=== PATIENT | female | born 1970 | race African-American/Black ===

== ENCOUNTER 2018-09-25 14:34 | Emergency (ER) | payer MEDICAID, OTHER ==
[~2018-09-25] VITALS: Ht 162.6 cm; Wt 92.1 kg
[2018-09-25 14:41] VITALS: BP 127/75
[2018-09-25 15:50] LABS: Eosinophils # (auto) 0.1 uL; Eosinophils % (auto) 0.8 % (0.0-7.0); Hemoglobin 8.4 g/dL (12.2-16.2); Lymphocytes # (auto) 2.7 uL; Neutrophils % (auto) 55.9 % (37.0-80.0)
[2018-09-25 15:52] LABS: Basophils # (auto) 0 uL; Basophils % (auto) 0.6 % (0.0-2.0); Hematocrit 27.6 % (36.0-46.0); Lymphocytes % (auto) 36.1 % (10.0-50.0); Mean Corpuscular Hemoglobin 19.1 pg (28.0-32.0); Mean Corpuscular Hgb Conc. 30.4 g/dL (32.0-36.0); Mean Corpuscular Volume 62.7 fL (80.0-100.0); Monocytes # (auto) 0.5 uL; Monocytes % (auto) 6.6 % (0.0-12.0); Neutrophils # (auto) 4.2 uL; Platelet Count (auto) 241 10^3/uL (140-450); Red Cell Distribution Width 18.4 % (11.8-14.3); White Blood Cell 7.6 10^3/uL (4.4-10.8)
[2018-09-25 16:07] LABS: Albumin 3.6 g/dL (3.4-5.0); Anion Gap 6 (5-15); Blood Urea Nitrogen 9 mg/dL (7-18); Calcium 8.2 mg/dL (8.5-10.1); Carbon Dioxide 24 mmol/L (21-32); Chloride 108 mmol/L (98-107); Glucose 100 mg/dL (74-106); Potassium 3.9 mmol/L (3.5-5.1); Sodium 138 mmol/L (136-145)
[2018-09-25 16:12] LABS: Alanine Aminotransferase 7 U/L (13-56); Alkaline Phosphatase 55 U/L (45-117); Aspartate Aminotransferase 8 U/L (15-37); BUN/Creatinine Ratio 11.1; Bilirubin, Total 0.2 mg/dL (0.2-1.0); GFR African American 98 mL/min; GFR Non-African American 81 mL/min; Total Protein 7.4 g/dL (6.4-8.2)
== END 2018-09-26 02:13 | disposition left against medical advice (07) ==
LOC: ER 14:35
DX: R06.02 Shortness of breath (principal); R07.9 Chest pain, unspecified; Z53.21 Procedure and treatment not carried out due to patient leaving prior to being seen by health care provider
CPT/HCPCS: 36415; 71046; 80053; 84484; 85025; 93005

== ENCOUNTER 2019-05-30 09:37 | Emergency (ER) | payer MEDICAID ==
[~2019-05-30] VITALS: Ht 165.1 cm; Wt 91.6 kg
[2019-05-30] MEDS ORDERED: ASPirin 81 mg TAB PO ONE (10:00)
[2019-05-30 10:41] LABS: Basophils # (auto) 0 uL; Hemoglobin 9.9 g/dL (12.2-16.2); Monocytes # (auto) 0.4 uL; Neutrophils # (auto) 3.6 uL
[2019-05-30 10:46] LABS: Basophils % (auto) 0.3 % (0.0-2.0); Eosinophils # (auto) 0.1 uL; Eosinophils % (auto) 2.7 % (0.0-7.0); Lymphocytes # (auto) 1.1 uL; Lymphocytes % (auto) 20.3 % (10.0-50.0); Mean Corpuscular Hemoglobin 20.6 pg (28.0-32.0); Mean Corpuscular Hgb Conc. 30.8 g/dL (32.0-36.0); Mean Corpuscular Volume 66.8 fL (80.0-100.0); Monocytes % (auto) 8.3 % (0.0-12.0); Neutrophils % (auto) 68.4 % (37.0-80.0); Platelet Count (auto) 207 10^3/uL (140-450); White Blood Cell 5.3 10^3/uL (4.4-10.8)
[2019-05-30 10:55] LABS: Alanine Aminotransferase 9 U/L (13-56); Albumin 3.6 g/dL (3.4-5.0); Anion Gap 7 (5-15); Aspartate Aminotransferase 12 U/L (15-37); BUN/Creatinine Ratio 9.8; Blood Urea Nitrogen 9 mg/dL (7-18); Calcium 8.1 mg/dL (8.5-10.1); Carbon Dioxide 23 mmol/L (21-32); Chloride 107 mmol/L (98-107); GFR African American 84 mL/min; GFR Non-African American 70 mL/min; Glucose 92 mg/dL (74-106); Potassium 3.9 mmol/L (3.5-5.1); Sodium 137 mmol/L (136-145)
[2019-05-30 10:58] LABS: Alkaline Phosphatase 53 U/L (45-117); Bilirubin, Total 0.4 mg/dL (0.2-1.0); Total Protein 7.4 g/dL (6.4-8.2)
[2019-05-30 11:00] LABS: Red Cell Distribution Width 22.2 % (11.8-14.3)
[2019-05-30 12:41] VITALS: BP 123/75
== END 2019-05-30 13:49 | disposition home or self-care (01) ==
LOC: ER 09:40
DX: F41.9 Anxiety disorder, unspecified (principal); R07.89 Other chest pain
CPT/HCPCS: 36415; 71045; 80053; 84443; 84484; 85025

== ENCOUNTER 2019-07-20 11:50 | Emergency (ER) | payer MEDICAID ==
[~2019-07-20] VITALS: Ht 165.1 cm; Wt 83.9 kg
[2019-07-20 12:00] VITALS: BP 128/87
== END 2019-07-20 14:13 | disposition left against medical advice (07) ==
LOC: ER 11:50
DX: I10 Essential (primary) hypertension (principal); Z53.21 Procedure and treatment not carried out due to patient leaving prior to being seen by health care provider
CPT/HCPCS: 93005

== ENCOUNTER 2024-06-10 19:31 | Emergency (ER) | payer MEDICAID ==
[~2024-06-10] VITALS: Ht 165.1 cm; Wt 93.0 kg
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
[2024-06-10 20:04] LABS: Basophils # (auto) 0 10 ^3/uL (0-0.2); Basophils % (auto) 0.4 % (0.0-2.0); Eosinophils # (auto) 0.1 10 ^3/uL (0-0.8); Eosinophils % (auto) 0.8 % (0.0-7.0); Hematocrit 42.6 % (36.0-46.0); Hemoglobin 13.9 g/dL (12.2-16.2); Lymphocytes # (auto) 4.4 10 ^3/uL (0.4-5.4); Lymphocytes % (auto) 44.5 % (10.0-50.0); Mean Corpuscular Hemoglobin 27.5 pg (28.0-32.0); Mean Corpuscular Hgb Conc. 32.7 g/dL (32.0-36.0); Mean Corpuscular Volume 84.2 fL (80.0-100.0); Monocytes # (auto) 0.6 10 ^3/uL (0-1.3); Monocytes % (auto) 6.1 % (0.0-12.0); Neutrophils # (auto) 4.8 10 ^3/uL (1.6-8.6); Neutrophils % (auto) 48.2 % (37.0-80.0); Nucleated Red Blood Cells % 0.1 %; Platelet Count (auto) 198 10^3/uL (140-450); Red Blood Cells 5.05 10^6/uL (4.0-5.20); Red Cell Distribution Width 14.7 % (11.8-14.3)
[2024-06-10 20:13] LABS: Chloride 109 mmol/L (98-107); Sodium 141 mmol/L (136-145)
[2024-06-10 20:14] LABS: Anion Gap 9 (5-15); Calcium 9.6 mg/dL (8.7-10.4); Carbon Dioxide 23 mmol/L (20-31)
[2024-06-10 20:19] LABS: BUN/Creatinine Ratio 10.5 (10.0-20.0); Blood Urea Nitrogen 10 mg/dL (9-23); Glucose 113 mg/dL (74-106)
--- NOTE | 2024-06-10 20:37 | DVH ---
XY CHEST TWO VIEWS ROUTINE CLINICAL HISTORY: chest pain COMPARISON: None TECHNIQUE: Frontal and lateral view of the chest was obtained FINDINGS: Lines and Tubes: None Lungs: No focal consolidation. Pleura: No effusion. No pneumothorax. Cardiomediastinal contours: Unremarkable Bones: No acute osseous abnormality. IMPRESSION: 1. No acute cardiopulmonary disease.
[2024-06-10 23:31] VITALS: BP 132/83; PULSE 79; RESP 18; TEMP 98; O2SAT 97
--- NOTE | 2024-06-11 07:09 | ECG ---
[facility] Test Date: 2024-06-10 Test Time: 22:51:01 Pat Name: AMANDA HICKS Department: ER Room: Gender: F Supply Chain Business Analyst: EMMANUEL : 1970 Requested By: JAQUELINE FULLER Order Number: [id number] Reading MD: Michael Lu Measurements Intervals [place] Rate: 77 P: 70 OK: 144 QRS: 72 QRSD: 82 T: 44 QT: 373 QTc: 423 Interpretive Statements Sinus rhythm Borderline T abnormalities, anterior leads Baseline wander in lead(s) I,II,III,aVL,aVF,V1,V2,V3 Electronically Signed On 06-16-2024 10:11:08 PST by Michael Lu Please click the below link to view image of tracing.
--- NOTE | 2024-06-11 07:09 | ECG ---
[facility] Test Date: 2024-06-10 Test Time: 20:53:29 Pat Name: AMANDA HICKS Department: ER Room: Gender: F Senior Automation Engineer: EMMANUEL : 1970 Requested By: JAQUELINE FULLER Order Number: [id number] Reading MD: Michael Lu Measurements Intervals [place] Rate: 73 P: 68 [place]: 145 QRS: 76 QRSD: 83 T: 31 QT: 380 QTc: 419 Interpretive Statements Sinus rhythm Borderline T abnormalities, anterior leads Electronically Signed On 06-16-2024 10:10:56 PST by Michael Lu Please click the below link to view image of tracing.
--- NOTE | 2024-06-13 10:47 | ECG ---
[facility] Test Date: 2024-06-10 Test Time: 19:47:17 Pat Name: AMANDA HICKS Department: ED Room: Gender: F Analytical Clerk: RUSSELL : 1970 Requested By: JAQUELINE FULLER Order Number: [id number] Reading MD: Michael Lu Measurements Intervals [place] Rate: 79 P: 53 GA: 144 QRS: 57 QRSD: 92 T: 29 QT: 356 QTc: 409 Interpretive Statements Sinus rhythm Artifact in lead(s) I,III,aVR,aVF,V1,V2,V3,V4,V5,V6 Electronically Signed On 06-16-2024 10:10:41 PST by Michael Lu Please click the below link to view image of tracing.
== END 2024-06-10 23:33 | disposition home or self-care (01) ==
LOC: ER 19:31
DX: R07.89 Other chest pain (principal); G35 Multiple sclerosis; Z88.2 Allergy status to sulfonamides
CPT/HCPCS: 36415; 71046; 80048; 84484; 85025; 93005

== ENCOUNTER 2024-07-19 10:49 | Inpatient (IN) | payer MEDICAID ==
[~2024-07-19] VITALS: Ht 172.7 cm; Wt 104.5 kg
[2024-07-19 10:49] VITALS: BP 152/80; PULSE 84; RESP 20; O2SAT 98
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
--- NOTE | 2024-07-19 12:08 | DVH ---
EXAM: XY CHEST PORTABLE Indication: sob Technique: Single frontal view of the chest was obtained Comparison: None FINDINGS: Lines and Tubes: None Lungs: No focal consolidation. Pleura: No effusion. No pneumothorax. Cardiomediastinal contours: Unremarkable Bones: No acute osseous abnormality. IMPRESSION: No acute cardiopulmonary disease.
[2024-07-19 12:14] LABS: Basophils # (auto) 0 10 ^3/uL (0-0.2); Basophils % (auto) 0.4 % (0.0-2.0); Eosinophils # (auto) 0 10 ^3/uL (0-0.8); Eosinophils % (auto) 0.5 % (0.0-7.0); Hematocrit 41.7 % (36.0-46.0); Lymphocytes # (auto) 2.7 10 ^3/uL (0.4-5.4); Lymphocytes % (auto) 29.9 % (10.0-50.0); Mean Corpuscular Hemoglobin 27.7 pg (28.0-32.0); Mean Corpuscular Hgb Conc. 33.5 g/dL (32.0-36.0); Mean Corpuscular Volume 82.7 fL (80.0-100.0); Monocytes # (auto) 0.6 10 ^3/uL (0-1.3); Monocytes % (auto) 6.5 % (0.0-12.0); Neutrophils # (auto) 5.8 10 ^3/uL (1.6-8.6); Neutrophils % (auto) 62.7 % (37.0-80.0); Platelet Count (auto) 218 10^3/uL (140-450); Red Blood Cells 5.04 10^6/uL (4.0-5.20); Red Cell Distribution Width 14.6 % (11.8-14.3); White Blood Cell 9.2 10^3/uL (4.4-10.8)
[2024-07-19 12:23] LABS: Potassium 3.9 mmol/L (3.5-5.1); Sodium 142 mmol/L (136-145)
[2024-07-19 12:24] LABS: Anion Gap 5 (5-15); Calcium 10.1 mg/dL (8.7-10.4); Carbon Dioxide 26 mmol/L (20-31)
[2024-07-19 12:29] LABS: BUN/Creatinine Ratio 13.9 (10.0-20.0); Blood Urea Nitrogen 14 mg/dL (9-23); Glucose 100 mg/dL (74-106)
[2024-07-19 12:33] LABS: Chloride 111 mmol/L (98-107)
[2024-07-19 14:19] LABS: Urine Bacteria FEW /hpf (None Seen); Urine Blood TRACE /uL (Negative); Urine Clarity Turbid (Clear); Urine Color Colorless (Yellow); Urine Mucus FEW (None Seen); Urine Protein, UAD TRACE (Negative); Urine Specific Gravity 1.021 (1.001-1.035); Urine Urobilinogen Normal (Negative); Urine WBC 25 /hpf (0 - 5); Urine WBC Clumps PRESENT /hpf (None Seen)
[2024-07-19] MEDS ORDERED: TEMAZEPAM 15 MG CAP PO PRN (16:30)
[2024-07-19] MEDS ORDERED: SODIUM CHLORIDE 0.9% 1,000 ML IV SCH (16:30)
[2024-07-19] MEDS ORDERED: cefTRIAXone 1GM/50ML D5W 50 ML IV SCH (16:30)
[2024-07-19] MEDS ORDERED: DOCUSATE SOD 100 MG CAP PO PRN (16:30)
[2024-07-19] MEDS ORDERED: ONDANSETRON HCL 4 MG/2 ML VIAL IV PRN (16:30)
[2024-07-19] MEDS ORDERED: HYDROcodone-ACET 5/325MG TAB PO PRN (16:30)
[2024-07-19] MEDS ORDERED: MORPHINE SULFATE INJ 2 MG/ml SYRG IV PRN (16:30)
[2024-07-19] MEDS ORDERED: ACETAMINOPHEN 325 MG TAB PO PRN (16:30)
[2024-07-19] MEDS ORDERED: MAALOX PLUS or MAALOX 30 ML PO PRN (16:30)
[2024-07-19] MEDS ORDERED: LORazepam 0.5 MG TAB PO PRN (16:30)
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
== END 2024-07-19 21:31 | disposition left against medical advice (07) | DRG 203 ==
LOC: ER 10:49 → EDBD 10:49 → OVERFLOW 16:20
PROVIDERS: ADMIT Hospitalist; ATTEND Hospitalist
DX: R07.89 Other chest pain (principal); I10 Essential (primary) hypertension; Z88.2 Allergy status to sulfonamides; Z82.49 Family history of ischemic heart disease and other diseases of the circulatory system
CPT/HCPCS: 36415; 70450; 71045; 71250; 72040; 74176; 80048; 81001; 81025; 84484; 85025; G0378